=== PATIENT | female | born 1980 | race Caucasian/White ===

== ENCOUNTER 2024-11-07 12:58 | Outpatient (OUT) | payer OTHER, SELFPAY ==
--- OUTSIDE RECORDS SUMMARY | 2023-11-05 17:11 | XMS_ITS ---
Author Organization The [facility] in [place] Address [address] [place] [address] Care Team Providers Care Family Coach Name Role Phone Bertin Birmingham Primary Care Provider REASON FOR VISIT labs/LMTCB Encounters Encounter Location Date Provider Diagnosis [facility] [address] [place] [address] 11/05/2023 Bertin Birmingham Plan Of Treatment No Information Progress Notes * Cindy ZELAYADOB: [birth year] (43 yo F)Acc No.[id number]:11/05/2023 Patient: Cindy WYATT :1980 A ge:43 Y S ex:Female Address:[address] [place] [address] * true * Date: Generated for Ismaeli ng/Fawillardg/eTransmitting on: 0 11/07/2024 01:07 PM EDT
--- OUTSIDE RECORDS SUMMARY | 2024-09-18 12:15 | XMS_ITS ---
Author Organization The [facility] in [place] Address [address] [place] [address] Care Team Providers Care Barrel Charrer Helper Name Role Phone Bertin Birmingham Primary Care Provider Allergies Allergen (clinical drug ingredient) Drug/Non Drug Allergy documented on EMR Reaction Allergy Type Onset Date Status povidone-iodine Betadine rash, burning skin Drug Allergy Active REASON FOR VISIT urgent care f/u- they put her in an air cast- no x-rays taken Social History Tobacco Use: Social History Observation Description Date Details (start date - stop date) Former Smoker 10/07/1996 - 01/07/2019 Tobacco Control (Standard) Question Answer Notes Tobacco use: Former smoker When did you start smoking? 10/07/1996 When did you stop smoking? 01/07/2019 Vital Signs Blood pressure systolic 112 mm Hg 09/19/19 25 Blood pressure diastolic 80 mm Hg 025 Height 64 in 09/18/2024 Weight 161.6 lbs 09/18/2024 BMI 27.74 kg/m2 09/18/2024 Encounters Encounter Location Date Provider Diagnosis [facility] [address] [place] [address] 09/18/2024 Bertin Birmingham Ankle sprain S93.409 A Assessments Encounter Date Diagnosis (ICD Code) Assessment Notes Treatment Notes Treatment Clinical Notes Section Notes 09/18/2024 Ankle sprain (ICD-10 - S93.409A) Plan Of Treatment No Information Progress Notes * Cindy ZELAYADOB: [birth year] (44 yo F)Acc No.[id number]:09/18/2024 Progress Note Patient: Cindy WYATT Provider: Richie Birmingham ([facility])MD :1980 A ge:44 Y S ex:Female Date:09/18/2024 Address:[address] [place], [place] [id number] Check In:04:10 PM ESTCheck O ut:04:46 PM EST Subjective: * Chief Complaints: * U rgent care f/u- they put her in an air cast- no x-rays taken * HPI: G eneral: Rlled ankl;e - left - pain immedialty -pain worse at tiem the nsome the next day-0 - no x-ray at urgent care - 3 days later hx of fpc ankele issiues. D epression Screening: PHQ-2 (2015 Edition) L ittle interest or pleasure in doing things??Not at all F eeling down, depressed, or hopeless? N ot at all T otal Score 0 * ROS: E ENT: hearing changes d enies. v isual changes d enies.?non-healing mouth sores d enies. s wollen glands or neck lumps d enies. h oarseness d enies. s ore throat d enies. d ifficulty swallowing d enies. n ose bleeds d enies. n donita congestion d enies. e ar ache d enies. e ar discharge?denies. r inging in ears d enies. l ight sensitivity d enies. e ye pain d enies. b lurring d enies. e ye irritation d enies. d ouble vision d enies.?vision loss d enies. G eneral/Constitutional: Sweats: D enies. F atigue d enies. S leep problems d enies. A norexia d enies. M alaise d enies. W eight loss d enies.?Fatigue or Weakness d enies. F ever or Chills d enies. C ardiovascular: Shortness of Breath w/lying flat d enies. L ightheadedness/dizziness d enies. C hest tightness/ heavy pressure d enies. S welling of legs, ankles, or feet d enies. W aking up with shortness of breath d enies. C hest pain denies. P alpitations d enies. W eight gain d enies. R espiratory: Chronic or frequent cough d enies. C oughing up blood?denies. D ifficulty breathing d enies. P roductive cough d enies. S noring?denies. S hortness of breath that awakens from sleep (PND) d enies. C hest pain d enies. S putum production d enies. W heezing d enies. M usculoskeletal: Joint pain d enies. J oint Fluid d enies. B ack pain d enies. K nee pain d enies. N monse pain d enies. J oint Stiffness d enies. M uscle cramps d enies. W eakness of muscles d enies. A rthritis d enies. M uscle aches d enies. P ain in shoulder(s) d enies. S wollen joints d enies. * Active Problem List Z00.00 Well adult Modified On:10/29/2023W/U Status:confirmed S93.409A Ankle sprain Modified On:09/10/2024W/U Status:confirmed * Medical History: * Surgical History: C ESAREAN DELIVERY x2 * Hospitalization/Major Diagno stic Procedure: D enies Past Hospitalization * Family History: F ather: , throat cancer, diagnosed with Other malignant neoplasm of unspecified site.?Mother: alive, throat cancer, diagnosed with Other malignant neoplasm of unspecified site. Brother(s): alive. S ister(s): alive. 1 brother(s) , 1 sister(s) - healthy. 2 son(s) - healthy. . * Social History: T obacco Use: T obacco Control (Standard) T obacco use: F ormer smoker W hen did you start smoking? 0 10/07/1996 W hen did you stop smoking? 1 * Medications: N one * Allergies: B etadine: rash, burning skin - Allergyno[Allergies Verified] Objective: * Vitals: W t:161.6lbs, Ht: 64 in, BP:112/80mm Hg, BMI:27.74Index, Ht-cm: 162.56 cm, Wt-k.3 kg. * Examination: P hysical Exam: GENERAL: w ell developed, well nourished, in no acute distress. HEAD: n ormocephalic/atraumatic. EYES: p upils equal, round and reactive to light, conjunctivae and sclerae normal. EARS: n o deformity or lesion of external ear, canals and TM appear normal bilaterally, TM's intact, not inflamed with normal light reflex, hearing grossly normal to conversational speech. NOSE: n o deformity, discharge, inflammation, or lesions.? MOUTH: m ucous membranes moist, normal oropharynx and posterior pharynx without lesions or exudates, tongue normal, dentition normal. NECK: n monse supple, no masses or palpable cervical nodes, trachea midline, thyroid without nodules, masses, tenderness, or enlargement. CHEST: n o chest wall deformity, no chest wall tenderness.? LUNGS: n ormal respiratory effort and clear to auscultation, no wheezes, rales, or rhonchi, good air exchange. CARDIO: r egular rate and rhythm, normal S1 and S2, nor murmur, rub, or gallop. PULSES: n ormal capillary refill. ABDOMEN: s oft, non-distended, non-tender, no masses. MUSCULOSKELETAL: n o deformity or scoliosis noted, normal range of motion, joints normal, no erythema, edema, effusion, or ecchymosis. EXTREMITY: n o clubbing, cyanosis, edema, or deformity with normal ROM in both upper and lower bilateral extremities. NEUROLOGIC: g rossly normal. SKIN: n o rashes, ulcerations, or suspicious lesions. LYMPH NODES: n o cervical adenopathy, nodes normal. MENTAL STATUS: a lert and oriented x3, normal mood and affect. Assessment: * Assessment: 1. A nkle sprain - S93.409A (Primary) Plan: * Treatment: * Procedure Codes: * Preventive Medicine: Screenings/Counseling: B PR ACTION PLAN Above Normal BMI Follow-up D ietary management education, guidance, and counseling * * Sign off status: Completed Visit Status: C HK (Check Out) true * Provider: Richie Birmingham ([facility])MD Date: 0 09/18/2024 Generated for Ismaeli ng/Fawillardg/eTransmitting on: 0 11/07/2024 01:07 PM EDT History and Physical Notes * HPI (History of Present Illness) Category Sub-Category Detail Notes Category Not es General Rlled ankl;e - left - pain immedialty -pain worse at tiem the nsome the next day-0 - no x-ray at urgent care - 3 days later hx of fpc ankele issiues Depression Screening PHQ-2 (2015 Edition) Little interest or pleasure in doing things?: Not at all Feeling down, depressed, or hopeless?: N ot at all Total Score: 0 Examination Category Sub-Category Detail Notes Category Not es Physical Exam GENERAL: well developed, well nourished, in no acute distress HEAD: normocephalic/atraum atic EYES: pupils equal, round and reactive to light, conjunctivae and sclerae normal EARS: no deformity or lesi on of external ear, canals and TM appear normal bilaterally, TM's intact, not inflamed with normal light reflex, hearing grossly normal to conversational speech NOSE: no deformity, discha rge, inflammation, or lesions MOUTH: mucous membranes ghassan st, normal oropharynx and posterior pharynx without lesions or exudates, tongue normal, dentition normal NECK: neck supple, no mass es or palpable cervical nodes, trachea midline, thyroid without nodules, masses, tenderness, or enlargement CHEST: no chest wall deform ity, no chest wall tenderness LUNGS: normal respiratory e ffort and clear to auscultation, no wheezes, rales, or rhonchi, good air exchange CARDIO: regular rate and rhy thm, normal S1 and S2, nor murmur, rub, or gallop PULSES: normal capillary ref ill ABDOMEN: soft, non-distended, non-tender, no masses RECTAL: MUSCULOSKELETAL: no deformity or scol iosis noted, normal range of motion, joints normal, no erythema, edema, effusion, or ecchymosis EXTREMITY: no clubbing, cyanosi s, edema, or deformity with normal ROM in both upper and lower bilateral extremities NEUROLOGIC: grossly normal SKIN: no rashes, ulceratio ns, or suspicious lesions LYMPH NODES: no cervical adenopat hy, nodes normal MENTAL STATUS: alert and oriented x 3, normal mood and affect
--- OUTSIDE RECORDS SUMMARY | 2024-11-06 10:51 | XMS_ITS ---
Author Organization The [facility] in [place] Address [address] [place] [address] Care Team Providers Care Metallurgical Or Materials Technician Name Role Phone Bertin Birmingham Primary Care Provider REASON FOR VISIT update ankle sprain Medications Medication SIG (Take, Route, Fr equency, Duration) Notes Start Date End Date Status Diclofenac Sodium 75 MG 1 tablet as need ed Orally Twice a day for 30 days 11/06/2024 Active Encounters Encounter Location Date Provider Diagnosis [facility] [address] [place] [address] 11/06/2024 Bertin Birmingham Ankle sprain S93.409 A Assessments Encounter Date Diagnosis (ICD Code) Assessment Notes Treatment Notes Treatment Clinical Notes Section Notes 11/06/2024 Ankle sprain (ICD-10 - S93.409A) Plan Of Treatment Medication Medication Name Sig Start Date Stop Date Notes Diclofenac Sodium 75 MG 1 tablet as need ed Orally Twice a day for 30 days 11/06/2024 Pending Test Test Name Order Date XR Ankle 2 Views Left 11/06/2024 Progress Notes * Cindy ZELAYADOB: [birth year] (44 yo F)Acc No.[id number]:11/06/2024 Patient: Cindy WYATT :1980 A ge:44 Y S ex:Female Address:[address] [place] [address], [address] * Refills Start Diclofenac Sodium Tablet Delayed Release, 75 MG, Orally, 60 Tablet, 1 tablet as needed, Twice a day, 30 days, Refills=0 Subjective: * Chief Complaints: * U pdate ankle sprain * Medical History: * Surgical History: * Hospitalization/Major Diagno stic Procedure: * Medications: Objective: * Vitals: * Physical Examination: Assessment: * Assessment: 1. A nkle sprain - S93.409A (Primary) Plan: * Treatment: 2. O thers Start Diclofenac Sodium Tablet Delayed Release, 75 MG, 1 tablet as needed, Orally, Twice a day, 30 days, 60 Tablet, Refills 0. * Procedure Codes: * true * Date: Generated for Abi ortiz/Modesot/eTlilysmitting on: 0 11/07/2024 01:07 PM EDT
--- NOTE | 2024-11-07 | XR_ITS ---
The [place] [id number] Patient Name: CATHY MAR MRN: [id number] date: 1980 Sex: F Assigned Patient Location: [facility] Current Patient Location: [facility] Accession/Order Number: [id number] Exam Date: 11/07/2024 14:09 Report Date: 11/07/2024 14:10 At the request of: QUIQUE HARE MD Procedure: XR ankle LT 2V LEFT ANKLE - 2 views CLINICAL HISTORY: ANKLE SPRAIN S93.409ALeft ankle pain after fall 2 weeks ago COMPARISON: None. FINDINGS: No focal soft tissue abnormality. Ankle mortise appears intact without acute bony process. XR/XR ankle LT 2V IMPRESSION: NO ACUTE BONY PROCESS. Impression dictated by: Kemar Monroy Jr., D.O. 11/07/2024 2:10 PM Dictation Location: [place] [address] Electronically authenticated by: [id number] Y Date: 11/07/2024 14:10
--- OUTSIDE RECORDS SUMMARY | 2024-11-07 13:07 | XMS_ITS | Patient Health Record ---
Author Organization The [facility] in [place] Address [address] [place] [address] Care Team Providers Care Adapted Physical Education Teacher Name Role Phone Bertin Birmingham Primary Care Provider [phone] Allergies Allergen (clinical drug ingredient) Drug/Non Drug Allergy documented on EMR Reaction Allergy Type Onset Date Status povidone-iodine Betadine rash, burning skin Drug Allergy Active Reason For Referral No Information Medications Medication SIG (Take, Route, Fr equency, Duration) Notes Start Date End Date Status Diclofenac Sodium 75 MG 1 tablet as need ed Orally Twice a day for 30 days 11/06/2024 Active Social History Tobacco Use: Social History Observation Description Date Details (start date - stop date) Former Smoker 10/07/1996 - 01/07/2019 Tobacco Control (Standard) Question Answer Notes Tobacco use: Former smoker When did you start smoking? 10/07/1996 When did you stop smoking? 01/07/2019 AUDIT-C (Standard) Question Answer Notes Did you have a drink containing alcohol in the p ast year? No Points 0 Interpretation Negative Problems Problem Type SNOMED Code ICD Code Onset Dates Problem Status W/U Status Risk Notes Problem Ankle sprain (S93.409A) Active confirmed Problem Well adult ([id number]) Well adult (Z00.00) Active confirmed Vital Signs Blood pressure diastolic 80 mm Hg 09/18/2024 Height 64 in 09/18/2024 Blood pressure systolic 112 mm Hg 09/18/2024 Weight 161.6 lbs 09/18/2024 BMI 27.74 kg/m2 09/18/2024 Encounters Encounter Location Date Provider Diagnosis [facility] [address] [place] [address] 11/06/2024 Bertin Hoy Ankle sprain S93.409 A [facility] [address] [place] [address] 09/18/2024 Bertin Hoy Ankle sprain S93.409 A Assessments Encounter Date Diagnosis (ICD Code) Assessment Notes Treatment Notes Treatment Clinical Notes Section Notes 09/18/2024 Ankle sprain (ICD-10 - S93.409A) 11/06/2024 Ankle sprain (ICD-10 - S93.409A) Plan Of Treatment Pending Test Test Name Order Date XR Ankle 2 Views Left 11/06/2024 CBC AUTO DIFF 10/29/2023 GLYCOHEMOGLOBIN A1C 10/29/2023 LIPID PROFILE 10/29/2023 PROF 14(COMP METB) 10/29/2023 THYROID PROFILE WITH TSH 10/29/2023 MM screening mammo BI 10/29/2023 Insurance Providers Payer Name Payer Address Payer Phone Subscriber Number Group Number Insured Name Patient Relationship to Insured Coverage Start Date Coverage End Date [employer] [place] [address] [place] [phone] [id number] Cindy Zelaya Self - patient is the insured Medical (General) History Surgical History Surgery Date(Month/Year) DELIVERY x2
--- OUTSIDE RECORDS SUMMARY | 2024-11-07 13:07 | XMS_ITS | Clinical Summary ---
Author Organization [facility] Address [id number] [address] [place] [address] Care Team Providers Care Civil Engineering Manager Name Role Phone Guicho Birmingham MD Primary Care Provider [phone] Family History Medical History Relation Name Comments Breast cancer Neg Hx Social History Tobacco Use Types Packs/Day Years Used Date Smoking Tobacco: Never Assessed Comments No Sex and Gender Information Value Date Recorded Sex Assigned at Not on file Legal Sex Female 10:00 AM EST Gender Identity Not on file Sexual Orientation Not on file Last Filed Vital Signs Vital Sign Reading Time Taken Comments Blood Pressure - - Pulse - - Temperature - - Respiratory Rate - - Oxygen Saturation - - Inhaled Oxygen Concentration - - Weight 76.2 kg (168 lb) 11/08/2023 3:10 PM EDT Height 162.6 cm (5' 4 ) 11/08/2023 3:10 PM EDT Body Mass Index 28.84 11/08/2023 3:10 PM EDT Plan of Treatment Health Maintenance Due Date Last Done Comments Depression Screening 1990 Tobacco Screening 1990 Adult BMI Follow Up Plan 02/02/1996 DTaP,Tdap and Td Vaccines (1 - Tdap) 1997 Pap Smear 1999 Adult BMI Screening 11/07/2024 11/08/2023 Influenza Vaccine 12/08/2024 Medical Devices Not on file Insurance DONAL TYSON Care Teams Civil Engineering Manager Relationship Specialty Start Date End Date Guicho Birmingham MD PCP - General Family Medicine 11/06/23
== END 2024-11-07 12:59 | disposition home or self-care (01) ==
PROVIDERS: PCP Family Medicine; Visit Provider Family Medicine
DX: S93.409A Sprain of unspecified ligament of unspecified ankle, initial encounter (principal)
CPT/HCPCS: 73600

== ENCOUNTER 2024-11-12 19:58 | Outpatient (REF) | payer OTHER, SELFPAY ==
[2024-11-17 17:07] LABS: Age Gdln ACOG Testing Note (.); IGP, Aptima HPV, rfx 16/18,45 Note (.)
== END 2024-11-12 19:59 | disposition home or self-care (01) ==
LOC: LAB 19:58
PROVIDERS: PCP Family Medicine; Visit Provider Physician Assistant
DX: Z01.419 Encounter for gynecological examination (general) (routine) without abnormal findings (principal)
CPT/HCPCS: 87624; 88175

== ENCOUNTER 2024-11-28 12:26 | Outpatient (OUT) | payer OTHER, SELFPAY ==
--- NOTE | 2024-11-28 12:33 | MR_ITS ---
[address] [address] Patient Name: CATHY MAR MRN: [id number] date: 1980 Sex: F Assigned Patient Location: MRI Current Patient Location: MRI Accession/Order Number: [id number] Exam Date: 11/28/2024 13:00 Report Date: 11/28/2024 15:04 At the request of: QUIQUE HARE MD Procedure: MR ankle LT wo con MRI left Ankle without contrast TECHNIQUE: Multiplanar T1 and T2-weighted imaging of the obtained without contrast. COMPARISON: Plain film imaging 11/26/2024 HISTORY: Left ankle injury. Continued pain. Medial ankle pain. Extension anteriorly. CLINICAL QUESTION: FINDINGS: SYNDESMOSIS: Adequate alignment of the distal tibia and fibula THE BONE MARROW: Normal fatty marrow without marrow infiltrative changes. No bony contusion of the tip of the medial malleolus. FRACTURE: No fracture identified. LATERAL COLLATERAL LIGAMENT COMPLEX: Intact anterior talofibular ligament. Intact calcaneofibular ligament. Intact posterior talofibular ligament. ANTEROLATERAL COMPARTMENT: No anterolateral impingement findings. PERONEAL TENDONS: Normal peroneal brevis tendon adjacent to the bone. No longitudinal split tear. Normal appearance of the peroneal longus tendon. Normal low signal tendon. Intact superior peroneal retinaculum with normal alignment of the peroneal brevis tendon. Normal appearance of the peroneal tendons behind the retromalleolar grove of the lateral malleolus. Fluid surrounds the peroneal tendons. May correspond with tenosynovitis of May related to trauma.. No hypertrophy of the peroneal tubercle of the lateral calcaneus BIFURCATE LIGAMENT: Calcaneocuboid and calcaneonavicular ligaments of the bifurcate ligament are intact. The anterior process of the calcaneus is intact without bone marrow edematous changes. Intact the midtarsal joint. DELTOID LIGAMENT: The superficial and deep components of the medial collateral deltoid ligaments are intact. SPRING LIGAMENT: The spring ligament normally intersects the posterior tibial tendon in the talar head with coronal view no findings of tear or thickening. Specifically the superior medial segment is preserved. POSTERIOR TIBIAL TENDON: Normal orientation the posterior tibial tendon behind of the medial malleolus inserting into the navicular bone. Small amount of normal fluid is seen within the tendon sheath which terminates 1-2 cm proximal to the navicular insertion. No distal paratendinitis of the tendon identified. Unremarkable heterogeneous signal intensity of the distal tendon identified. SINUS TARSI: Normal fat-containing sinus tarsi identified without evidence of posterior tibial tendon dysfunction, talocalcaneal or fibulocalcaneal impingement identified. FLEXOR DIGITORUM LONGUS: Intact. FLEXOR HALLUCIS LONGUS: Intact . Fluid surrounding the flexor hallucis longus is likely a normal finding suggesting communication of the joint. ACHILLES TENDON: Normal homogeneous low signal. Normal thickness with slight concave anterior surface present. No peritendinous edema. No retrocalcaneal bursitis. No David deformity. Infiltration No tear of the calcaneal insertion or mid substance. Normal Aman's fat-pad. No Achilles tendon insertion enthesophyte. ANTERIOR TIBIAL TENDON:Anterior tibial tendon intact. No surrounding abnormal tendon sheath fluid. PLANTAR FASCIA: 3 fascicles of the plantar fascia are intact. No calcaneal spurring. No reactive bone marrow edema. No adjacent soft tissue edema. MR/MR ankle LT wo con IMPRESSION: bony contusion of the medial malleolus. No linear fracture. Intact medial collateral ligaments. Findings of tenosynovitis of the peroneal tendons. This may be secondary to trauma. No tendon tear. No tendon dislocation. Impression dictated by: Dillon Vanessa M.D. 11/28/2024 3:04 PM Dictation Location: [place] [address] Electronically authenticated by: [id number] Y Date: 11/28/2024 15:04
== END 2024-11-28 12:27 | disposition home or self-care (01) ==
LOC: MRI 12:26
PROVIDERS: PCP Family Medicine; Visit Provider Family Medicine
DX: S93.402A Sprain of unspecified ligament of left ankle, initial encounter (principal); M65.872 Other synovitis and tenosynovitis, left ankle and foot
CPT/HCPCS: 73721